=== PATIENT | male | born 1995 | race Caucasian/White ===

== ENCOUNTER 2021-06-16 12:29 | Outpatient (REF) | payer OTHER, SELFPAY | END 2021-06-16 12:30 | disposition home or self-care (01) | LOC: HO.LAB 12:29 | PROVIDERS: Visit Provider Internal Medicine | DX: Z20.822 Contact with and (suspected) exposure to COVID-19 (principal) | CPT/HCPCS: C9803; U0003; U0005 ==

== ENCOUNTER 2021-07-17 15:24 | Emergency (ER) | payer SELFPAY ==
[2021-07-17 15:28] VITALS: BP 121/65; PULSE 67; RESP 18; TEMP 36.1; O2SAT 100; BMI 22.4
--- NOTE | 2021-07-17 16:23 | ED_ITS ---
HPI - Dental/Oral General Chief complaint: General Medical Stated complaint: dental pain Time Seen by Provider: 07/17/21 16:19 Source: patient Mode of arrival: ambulatory Limitations: no limitations History of Present Illness MD Complaint: tooth pain Teeth map: 1. Onset (ago): day(s) (over a year worse today) Duration: worsening Severity: moderate Relieving factors: nothing Exacerbating factors: chewing Context: history of dental caries, trauma (mechanism) (old fracture ) and poor dental care Treatment prior to arrival: none Related Data Previous Rx's Medication Instructions Recorded clindamycin HCl 300 mg capsule 600 mg PO Q6H 10 Days #80 cap 07/17/21 ibuprofen 800 mg tablet 800 mg PO Q8H PRN #14 tab 07/17/21 oxycodone 5 mg tablet 5 mg PO Q6H PRN #14 tab 07/17/21 Allergies Allergy/AdvReac Type Severity Reaction Status Date / Time Penicillins Allergy Unknown Unknown Verified 07/17/21 16:30 Review of Systems Review of Systems: Constitutional : No Fever, No Chills, No changes in PO intake, No difficulty speaking, no recent dental procedure, no heat or cold intolerance while eating, no recent face trauma, ENT/Mouth : + Dental pain, No Sore throat, No Jaw pain, No throat swelling, No swallowing difficulty, no change in voice, No facial swelling, no drooling, no trismus, no bleeding, no lacerations, no tongue swelling, gum swelling, Eyes: No Eye Pain, No periorbital Swelling Cardiovascular : No Chest Pain, No SOB Respiratory : No Cough, No Sputum, No Wheezing, No Smoke Exposure, No Dyspnea Gastrointestinal : No Nausea, No Vomiting, No Diarrhea Genitourinary : No Dysuria Musculoskeletal : No Myalgias Skin : No rash, no facial swelling or redness, Neuro : No Weakness, No Numbness, No Headache Yes all other systems are reviewed and are negative [facility] Past Medical History Attestation statement: The following information was validated with the patient. Social History Social History Advance Directives: No Advance Directives Information Provided: Yes Physical Exam Vital Signs: Vital Signs: Last Vital Signs Temp 97 F 07/17/21 15:28 Pulse 67 07/17/21 15:28 Resp 18 07/17/21 15:28 BP 121/65 07/17/21 15:28 Pulse Ox 100 07/17/21 15:28 Body Mass Index 22.4 vital signs have been reviewed as normal and appeared to be correct. Blood pressure normal. Heart rate normal. Respiration rate normal. Temperature normal. Oxygen saturation normal. Appearance: Alert. Oriented X3. No acute distress. Head: Normal external exam. Normocephalic. Atraumatic. Eyes: PERRLA. EOMI. Conjunctiva and sclera normal. Eyelids normal. ENT: EAC normal. TM's Normal. Pharynx normal. Uvula midline. Moist mucous membranes. No trismus noted. No drooling noted. No muffled voice noted. Dentition: Patient with poor dentition throughout with multiple old fractured teeth with multiple dental caries. Gingival within normal limits. No fluctuance. Not consistent with peritonsillar abscess. Not consistent with dental abscess. No salivary duct obstruction noted. Neck: Normal inspection. Neck supple. FROM. No adenopathy. Thyroid Normal. No meningeal signs. No neck mass noted. Trachea midline. CVS: Normal heart rate and rhythm. Heart sound normal. No murmurs noted. Pulses normal throughout. Respiratory: No respiratory distress. Painless inspiration. Breath sounds nor mal. No wheezes/rales/rhonchi noted. Chest nontender. No accessory muscle usage noted or decreased air movement noted. Back: Full range of motion noted. Skin: Skin warm and dry. Normal skin color. Normal skin turgor. No rashes/lesions/lacerations noted. Extremities:Extremities exhibit normal range of motion. Extremities nontender. Neuro: Oriented X 3. No motor deficit. No sensory deficit. Reflexes normal. [facility] - Dental/Oral Medical Records Attestation: I reviewed the patient's medical records. Discharge Plan Discharge Clinical Impression: Dental caries, Tooth ache Patient Disposition: Home, Self-Care Instructions: Toothache (ED) Prescriptions: New clindamycin HCl 300 mg capsule 600 mg PO Q6H 10 Days Qty: 80 RF: 0 ibuprofen 800 mg tablet 800 mg PO Q8H PRN (Reason: pain) Qty: 14 RF: 0 oxycodone 5 mg tablet 5 mg PO Q6H PRN (Reason: pain) Qty: 14 RF: 0 Referrals: Physician,None [Primary Care Provider] - 2 days (your dentist ) Stand Alone Forms: Work/School Release Print Language: Romansh
[2021-07-17] MEDS: oxyCODONE HCl Immed Release 5 MG TABLET PO (16:49)
--- NOTE | 2021-07-17 16:52 | PC.NURSE ---
PT AWAKE, ALERT AND ORIENTED X 3. SKIN WARM AND DRY. RESP UNLABORED. DENIES N/V. AIRWAY PATENT. SPEAKING IN FULL CLEAR SENTENCES. NO ACUTE DISTRESS NOTED. EVALUATED BY PENELOPE HOWE. PLAN IS FOR DC HOME. PT AGREEABLE TO PLAN.
== END 2021-07-17 16:58 | disposition home or self-care (01) ==
LOC: HO.ED 16:30
PROVIDERS: Emergency Provider Emergency Medicine Emergency Medical Services
DX: K02.9 Dental caries, unspecified (principal)
CPT/HCPCS: 99283

== ENCOUNTER 2022-01-13 11:03 | Emergency (ER) | payer MEDICAID, SELFPAY ==
[2022-01-13 11:19] VITALS: BP 122/64; PULSE 95; RESP 18; TEMP 36.9; O2SAT 97; BMI 21.5
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
== END 2022-01-13 12:59 | disposition home or self-care (01) ==
PROVIDERS: Emergency Provider Emergency Medicine
DX: T54.91XA Toxic effect of unspecified corrosive substance, accidental (unintentional), initial encounter (principal); T22.412A Corrosion of unspecified degree of left forearm, initial encounter; T32.0 Corrosions involving less than 10% of body surface; Y93.89 Activity, other specified; Y92.59 Other trade areas as the place of occurrence of the external cause; Y99.0 Civilian activity done for income or pay
CPT/HCPCS: 99283

== ENCOUNTER 2022-01-23 12:53 | Outpatient (RCR) | payer OTHER, SELFPAY | END 2022-02-19 14:57 | disposition home or self-care (01) | LOC: HO.WCC 12:53 | PROVIDERS: Visit Provider Physician Assistant | DX: T22.71 Corrosion of third degree of forearm (principal); T32.0 Corrosions involving less than 10% of body surface; F17.210 Nicotine dependence, cigarettes, uncomplicated; Y93.G1 Activity, food preparation and clean up; Y92.9 Unspecified place or not applicable; Y99.0 Civilian activity done for income or pay | CPT/HCPCS: 16020; 99212 ==

== ENCOUNTER 2022-02-06 15:11 | Emergency (ER) | payer OTHER, SELFPAY ==
[2022-02-06 15:21] VITALS: BP 123/65; PULSE 72; RESP 18; TEMP 36.2; O2SAT 99
--- NOTE | 2022-02-06 16:13 | ED_ITS ---
HPI - Dental/Oral General Chief complaint: Dental/Oral Stated complaint: Mouth pain Time Seen by Provider: 02/06/22 16:13 Source: patient Mode of arrival: ambulatory Limitations: no limitations History of Present Illness MD Complaint: tooth pain Teeth map: 1. Onset (ago): month(s) (The past few months worse in the past 2-3 days) Duration: constant Severity: moderate Relieving factors: nothing Exacerbating factors: nothing Context: history of dental caries and poor dental care Treatment prior to arrival: none Related Data Previous Rx's Medication Instructions Recorded clindamycin HCl 300 mg capsule 600 mg PO Q6H 10 Days #80 cap 07/17/21 ibuprofen 800 mg tablet 800 mg PO Q8H PRN #14 tab 07/17/21 oxycodone 5 mg tablet 5 mg PO Q6H PRN #14 tab 07/17/21 clindamycin HCl 300 mg capsule 300 mg PO Q8H 10 Days #30 cap 02/06/22 hydrocodone 5 mg-acetaminophen 325 1 tab PO Q6H PRN #10 tab 02/06/22 mg tablet ibuprofen 800 mg tablet 800 mg PO Q8H PRN #10 tab 02/06/22 Allergies Allergy/AdvReac Type Severity Reaction Status Date / Time Penicillins Allergy Unknown Unknown Verified 07/17/21 16:30 Review of Systems Review of Systems: Constitutional : No Fever, No Chills, No changes in PO intake, No difficulty speaking, no recent dental procedure, no heat or cold intolerance while eating, no recent face trauma, ENT/Mouth : + Dental pain, No Sore throat, No Jaw pain, No throat swelling, No swallowing difficulty, no change in voice, No facial swelling, no drooling, no trismus, no bleeding, no lacerations, no tongue swelling, gum swelling, Eyes: No Eye Pain, No periorbital Swelling Cardiovascular : No Chest Pain, No SOB Respiratory : No Cough, No Sputum, No Wheezing, No Smoke Exposure, No Dyspnea Gastrointestinal : No Nausea, No Vomiting, No Diarrhea Genitourinary : No Dysuria Musculoskeletal : No Myalgias Skin : No rash, no facial swelling or redness, Neuro : No Weakness, No Numbness, No Headache Yes all other systems are reviewed and are negative PMFSH Past Medical History Attestation statement: The following information was validated with the patient. Medical History No known health problems Social History Social History Advance Directives: No Advance Directives Information Provided: No Physical Exam Vital Signs: Vital Signs: Last Vital Signs Temp 97.2 F 02/06/22 15:21 Pulse 72 02/06/22 15:21 Resp 18 02/06/22 15:21 BP 123/65 02/06/22 15:21 Pulse Ox 99 02/06/22 15:21 BMI result Body Mass Index 20.0 vital signs have been reviewed as normal and appeared to be correct. Blood pressure normal. Heart rate normal. Respiration rate normal. Temperature normal. Oxygen saturation normal. Appearance: Alert. Oriented X3. No acute distress. Head: Normal external exam. Normocephalic. Atraumatic. Eyes: PERRLA. EOMI. Conjunctiva and sclera normal. Eyelids normal. ENT: EAC normal. TM's Normal. Pharynx normal. Uvula midline. Moist mucous membranes. No trismus noted. No drooling noted. No muffled voice noted. Dentition: Patient with poor dentition throughout with multiple old fractured teeth with multiple dental caries and some canker sores noted otherwise the rest of the Gingival within normal limits. No fluctuance. Not consistent with peritonsillar abscess. Not consistent with dental abscess. No salivary duct obstruction noted. Neck: Normal inspection. Neck supple. FROM. No adenopathy. Thyroid Normal. No meningeal signs. No neck mass noted. Trachea midline. CVS: Normal heart rate and rhythm. Heart sound normal. No murmurs noted. Pulses normal throughout. Respiratory: No respiratory distress. Painless inspiration. Breath sounds normal. No wheezes/rales/rhonchi noted. Chest nontender. No accessory muscle usage noted or decreased air movement noted. Back: Full range of motion noted. Skin: Skin warm and dry. Normal skin color. Normal skin turgor. No r ashes/lesions/lacerations noted. Extremities:Extremities exhibit normal range of motion. Extremities nontender. Neuro: Oriented X 3. No motor deficit. No sensory deficit. Reflexes normal. Course Course Course Narrative: Patient with dental pain/dental caries and canker ulcers. No dental absce sses/pharyngeal abscess/tonsillar abscess. Patient tolerating secretions well. No trismus/drooling/stridor. Will DC home with antibiotics and symptomatic treatment instructions return if any new or worsening symptoms to follow up with primary care provider and dentist. Patient understands agrees with this plan. [facility] - Dental/Oral Medical Records Attestation: I reviewed the patient's medical records. Discharge Plan Discharge Clinical Impression: Toothache, Dental caries, Aphthous ulcer Patient Disposition: Home, Self-Care Instructions: Canker Sores (ED), Toothache (ED) Prescriptions: New clindamycin HCl 300 mg capsule 300 mg PO Q8H 10 Days Qty: 30 0RF hydrocodone-acetaminophen 5-325 mg tablet 1 tab PO Q6H PRN (Reason: pain) Qty: 10 0RF Rx Instructions: May partially fill upon patient request ibuprofen 800 mg tablet 800 mg PO Q8H PRN (Reason: pain) Qty: 10 0RF No Action clindamycin HCl 300 mg capsule 600 mg PO Q6H 10 Days Qty: 80 0RF ibuprofen 800 mg tablet 800 mg PO Q8H PRN (Reason: pain) Qty: 14 0RF oxycodone 5 mg tablet 5 mg PO Q6H PRN (Reason: pain) Qty: 14 0RF Referrals: Physician,None [Primary Care Provider] - 2 days (Your PCP/dentist) Print Language: Romansh
== END 2022-02-06 16:28 | disposition home or self-care (01) ==
PROVIDERS: Emergency Provider Emergency Medicine
DX: K02.9 Dental caries, unspecified (principal); K12.0 Recurrent oral aphthae
CPT/HCPCS: 99283

== ENCOUNTER 2022-02-16 10:05 | Emergency (ER) | payer OTHER, SELFPAY ==
[2022-02-16 11:13] VITALS: BP 148/77; PULSE 76; RESP 18; TEMP 36.4; O2SAT 99
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
[2022-02-16] MEDS: Ketorolac Tromethamine 30 MG/ML VIAL IM (12:24)
== END 2022-02-16 12:53 | disposition home or self-care (01) ==
PROVIDERS: Emergency Provider Emergency Medicine
DX: M79.10 Myalgia, unspecified site (principal); M79.602 Pain in left arm; Z79.899 Other long term (current) drug therapy
CPT/HCPCS: 96372; 99282; 99284; J1885

== ENCOUNTER 2022-02-16 22:36 | Emergency (ER) | payer OTHER, SELFPAY ==
[2022-02-16 22:38] VITALS: BP 133/83; PULSE 83; RESP 18; TEMP 36.6; O2SAT 96
[2022-02-16 22:47] LABS: MANUAL DIFF FLAG NO
[2022-02-16 23:02] LABS: Basophils Absolute Auto 0.1 X10*3/uL (0.0-0.2); Basophils Percent Auto 0.4 % (0-2); Eosinophils Absolute Auto 0.1 X10*3/uL (0.0-0.4); Eosinophils Percent Auto 0.8 % (0-4); Hemoglobin 16.1 g/dl (14.0-18.0); Imm Gran Abs Auto 0.04 X10*3/uL (0.00-0.03); Imm Gran Pct Auto 0.3 % (0.0-0.4); Lymphocytes Absolute Auto 2.4 X10*3/uL (1.2-4.9); Lymphocytes Percent Auto 16.1 % (20-40); Mean Corpuscular Volume 85.7 fL (80.0-98.0); Mean Platelet Volume 9.9 fL (9.4-12.4); Monocytes Absolute Auto 1.4 X10*3/uL (0.1-1.2); Monocytes Percent Auto 9.7 % (2-11); Neutrophils Absolute Auto 10.7 x10*3/uL (2.0-8.3); Neutrophils Percent Auto 72.7 % (45-73); Platelet Count 266 X10*3/uL (160-400); Red Blood Count 5.37 X10*6/uL (4.60-5.80); Red Cell Distribution Width 13.1 % (11.0-16.0); White Blood Count 14.7 X10*3/uL (4.8-10.8)
[2022-02-16 23:03] LABS: Anion Gap 13 (12-20); Blood Urea Nitrogen 15 mg/dL (9-16); Calcium 10.5 mg/dL (8.4-10.2); Carbon Dioxide 23 mmol/L (22-29); Chloride 107 mmol/L (96-108); Creatinine Clr Calc Pharmacy 56.7; Estimated Glomerular Filt Rate 47; Glucose Random 104 mg/dL (60-115); Lipase 11 U/L (8-78); Potassium 3.8 mmol/L (3.3-5.1); Sodium 139 mmol/L (135-145)
--- NOTE | 2022-02-17 02:48 | PC.NURSE ---
Pt reports his vomiting has subsided and some of the blood that he was vomiting earlier in the day is no longer in his vomit.
[2022-02-17 03:00] VITALS: BP 116/60; PULSE 61; RESP 18; TEMP 37.3; O2SAT 96
[2022-02-17] MEDS: Sucralfate Oral Suspension 1 GM/10 ML ORAL.SUSP PO (03:27)
[2022-02-17] MEDS: Ondansetron ODT 4 MG TAB.RAPDIS TRANSLINGU (03:27)
[2022-02-17] MEDS: Lidocaine HCl Viscous 2 % 15 ML SOLUTION 10 ML MUCOUS MEM (03:27)
[2022-02-17] MEDS: Magnesium Hydrox/Alum Hydrox 30 ML ORAL.SUSP PO (03:28)
--- NOTE | 2022-02-17 03:47 | ED.NAVMDI ---
HPI - Nausea/Vomiting/Diarrhea General Chief complaint: Abdominal Pain Stated complaint: vomiting blood Time Seen by Provider: 02/17/22 03:10 Source: patient, family and information and referral director Mode of arrival: ambulatory History of Present Illness HPI Narrative: 26-year-old male who was seen here earlier in the day for chronic pain to the left arm currently taking hydrocodone for that, now presents with complaints of nausea and vomiting of 3 episodes dark red blood in the past 40 minutes. He denies any contaminated food or diarrhea but states he is having abdominal pain as well. He denies any alcohol/drug or marijuana use. Related Data Previous Rx's Medication Instructions Recorded clindamycin HCl 300 mg capsule 600 mg PO Q6H 10 Days #80 cap 07/17/21 ibuprofen 800 mg tablet 800 mg PO Q8H PRN #14 tab 07/17/21 oxycodone 5 mg tablet 5 mg PO Q6H PRN #14 tab 07/17/21 clindamycin HCl 300 mg capsule 300 mg PO Q8H 10 Days #30 cap 02/06/22 hydrocodone 5 mg-acetaminophen 325 1 tab PO Q6H PRN #10 tab 02/06/22 mg tablet ibuprofen 800 mg tablet 800 mg PO Q8H PRN #10 tab 02/06/22 ketorolac 10 mg tablet 10 mg PO TID PRN #10 tab 02/16/22 ondansetron 4 mg disintegrating 4 mg PO Q6H PRN #10 tab 02/17/22 tablet Allergies Allergy/AdvReac Type Severity Reaction Status Date / Time Penicillins Allergy Unknown Unknown Verified 02/16/22 22:38 Review of Systems Review of Systems: Pertinent positives and negatives as stated in HPI 10 point review of systems is otherwise negative. [facility] Past Medical History Source: nursing notes reviewed Medical History No known health problems Social History Social History Advance Directives: No Advance Directives Information Provided: No Physical Exam Vital Signs: Vital Signs: Last Vital Signs Temp 99.2 F 02/17/22 03:00 Pulse 61 02/17/22 03:00 Resp 18 02/17/22 03:00 BP 116/60 02/17/22 03:00 Pulse Ox 96 02/17/22 03:00 BMI result Body Mass Index 20.0 VITAL SIGNS: Reviewed. GENERAL: Well developed, well nourished, in no acute distress. HEAD: Normocephalic/atraumatic EYES: PERRLA, EOMI EARS: Ext canals without abnormality OROPHARYNX: no oral lesions noted, posterior pharynx clear, no stigmata of blood in the oral cavity. LUNGS: Normal breath sounds. No adventitious sounds or accessory muscle use. SpO2<96> CARDIOVASCULAR: Regular rate and rhythm without noted murmurs ABDOMEN: Soft, mild epigastric pain on palpation, non-distended with bowel sounds. SKIN: Inspection of the skin reveals no rashes NEUROLOGIC: Alert and oriented x 4. Strength and sensation to light touch were grossly intact x 4. Course Course Course Narrative: 26-year-old male with history and clinical presentation suggestive of possible reaction to having been on clindamycin for dental caries which was completed on Wednesday. Although there is no obvious hematemesis in the vomit bag, there have been no further episodes of vomiting since arrival in the emergency room, patient is not tachycardic nor tachypneic, and on review of all investigations there is no evidence of shift in H/H but the noted leukocytosis is likely reactive in nature. Patient was provided with Zofran as well as GI cocktail Carafate and is currently tolerating that without difficulty. All investigations reviewed and on re-evaluation patient is feeling much better. MDM - Nausea/Vomiting/Diarrhea Lab Data Result diagrams: 02/16/22 22:43 02/16/22 22:43 Labs: Lab Results 02/16/22 02/16/22 Range/Units 22:43 22:43 WBC 14.7 H (4.8-10.8) X10*3/uL RBC 5.37 (4.60-5.80) X10*6/uL Hgb 16.1 (14.0-18.0) g/dl Hct 46.0 (42.0-52.0) % MCV 85.7 (80.0-98.0) fL MCH 30.0 (27.0-33.0) pg MCHC 35.0 (31.0-36.0) g/dl RDW 13.1 (11.0-16.0) % Plt Count 266 (160-400) X10*3/uL MPV 9.9 (9.4-12.4) fL Immature Gran % (Auto) 0.3 (0.0-0.4) % Neut % (Auto) 72.7 (45-73) % Lymph % (Auto) 16.1 L (20-40) % [place] % (Auto) 9.7 (2-11) % Eos % (Auto) 0.8 (0-4) % Baso % (Auto) 0.4 (0-2) % Lymph # (Auto) 2.4 (1.2-4.9) X10*3/uL [place] # (Auto) 1.4 H (0.1-1.2) X10*3/uL Eos # (Auto) 0.1 (0.0-0.4) X10*3/uL Baso # (Auto) 0.1 (0.0-0.2) X10*3/uL Abs Immat Gran (auto) 0.04 H (0.00-0.03) X10*3/uL Absolute Neuts (auto) 10.7 H (2.0-8.3) x10*3/uL Absolute Nucleated RBC 0.000 (0.0-0.012) X10*3/uL Nucleated RBC % (auto) 0.0 (0.0-0.2) /100WBC Sodium 139 (135-145) mmol/L Potassium 3.8 (3.3-5.1) mmol/L Chloride 107 (96-108) mmol/L Carbon Dioxide 23 (22-29) mmol/L Anion Gap 13 (12-20) BUN 15 (9-16) mg/dL Creatinine 1.74 H (0.5-1.4) mg/dL Estim Creat Clear Calc 56.7 Estimated GFR 47 Random Glucose 104 (60-115) mg/dL Calcium 10.5 H (8.4-10.2) mg/dL Lipase 11 (8-78) U/L Discharge Plan Discharge Clinical Impression: Gastroenteritis, Gastritis Patient Disposition: Home, Self-Care Instructions: Gastritis (ED), Diet for Stomach Ulcers and Gastritis (ED), Gastroenteritis (ED) Additional Instructions: 1. Aumentar la hidrataci?n fluida, especialmente con agua. 2. Se le villarreal proporcionado ora receta para controlar las n?useas. 3. Establezca un proveedor de atenci?n primaria lo antes posible. Regrese a la orlando de emergencias si los s?ntomas empeoran. Prescriptions: New ondansetron 4 mg tablet,disintegrating 4 mg PO Q6H PRN (Reason: nausea and vomiting) Qty: 10 0RF No Action clindamycin HCl 300 mg capsule 600 mg PO Q6H 10 Days Qty: 80 0RF ibuprofen 800 mg tablet 800 mg PO Q8H PRN (Reason: pain) Qty: 14 0RF oxycodone 5 mg tablet 5 mg PO Q6H PRN (Reason: pain) Qty: 14 0RF clindamycin HCl 300 mg capsule 300 mg PO Q8H 10 Days Qty: 30 0RF hydrocodone-acetaminophen 5-325 mg tablet 1 tab PO Q6H PRN (Reason: pain) Qty: 10 0RF Rx Instructions: May partially fill upon patient request ibuprofen 800 mg tablet 800 mg PO Q8H PRN (Reason: pain) Qty: 10 0RF ketorolac 10 mg tablet 10 mg PO TID PRN (Reason: pain) Qty: 10 0RF Referrals: Physician,None [Primary Care Provider] - Print Language: Canadian
[2022-02-17 06:06] VITALS: BP 115/64; PULSE 72; RESP 18; TEMP 36.9; O2SAT 99
== END 2022-02-17 06:08 | disposition home or self-care (01) ==
PROVIDERS: Emergency Provider Student in an Organized Health Care Education/Training Program
DX: K52.9 Noninfective gastroenteritis and colitis, unspecified (principal); R11.2 Nausea with vomiting, unspecified; Z79.899 Other long term (current) drug therapy
CPT/HCPCS: 36415; 80048; 83690; 85025; 99281; 99283

== ENCOUNTER 2022-03-10 11:00 | Outpatient (RCR) | payer OTHER, SELFPAY | END 2022-03-24 11:54 | disposition home or self-care (01) | LOC: HO.OT 11:00 | PROVIDERS: Visit Provider Physician Assistant | DX: T22.212D Burn of second degree of left forearm, subsequent encounter (principal) | CPT/HCPCS: 97110; 97166 ==

== ENCOUNTER 2022-07-07 17:59 | Emergency (ER) | payer OTHER, SELFPAY ==
[2022-07-07 19:09] VITALS: BP 122/77; PULSE 77; RESP 16; TEMP 36.8; O2SAT 99; BMI 20.2
[2022-07-07 19:42] LABS: COVID-19 Test Negative (Negative); IDNOW Serial# 55D5AD1C
[2022-07-07 19:48] LABS: Strep A Nucleic Acid Negative (Negative)
--- NOTE | 2022-07-07 20:59 | ED_ITS ---
HPI - URI/Sore Throat General Chief Complaint: Fever Stated Complaint: fever, sore throat Time Seen by Provider: 07/07/22 19:35 Source: patient Mode of arrival: ambulatory Limitations: language barrier (Cook Islander-speaking medical sales associate utilized) History of Present Illness HPI Narrative: Patient presents to the emergency department for evaluation of upper respiratory symptoms. States for the past 2 days he has been feeling feverish, has not actually checked the temperature, as generalized body aches, sore throat. Denies any known sick contacts. Has taken acetaminophen which does improve tactile fever. Denies neck pain, neck stiffness, headache, dizziness, lightheadedness, chest pain, palpitations, shortness of breath, difficulty breathing, nausea, vomiting, abdominal pain, numbness or tingling of the extremities, weakness. Related Data Previous Rx's Medication Instructions Recorded clindamycin HCl 300 mg capsule 600 mg PO Q6H dental infection 10 07/17/21 days #80 caps ibuprofen 800 mg tablet 800 mg PO Q8H PRN pain #14 tabs 07/17/21 oxycodone 5 mg tablet 5 mg PO Q6H PRN pain #14 tabs 07/17/21 clindamycin HCl 300 mg capsule 300 mg PO Q8H 10 days #30 caps 02/06/22 hydrocodone 5 mg-acetaminophen 325 1 tab PO Q6H PRN pain #10 tabs 02/06/22 mg tablet ibuprofen 800 mg tablet 800 mg PO Q8H PRN pain #10 tabs 02/06/22 ketorolac 10 mg tablet 10 mg PO TID PRN pain #10 tabs 02/16/22 ondansetron 4 mg disintegrating 4 mg PO Q6H PRN nausea and 02/17/22 tablet vomiting #10 tabs Allergies Allergy/AdvReac Type Severity Reaction Status Date / Time Penicillins Allergy Unknown Unknown Verified 07/07/22 19:13 Review of Systems Review of Systems: Constitutional: Positive tactile fever. No recent unintentional weight loss. No night sweats. No chills. No weakness. Positive fatigue. ENT/ Mouth: No Ear Pain, positive Nasal Congestion, positive sore throat, No Rhinorrhea, No Swallowing Difficulty Skin: No rash or itching. Cardiovascular: No chest pain. No palpitations. Respiratory: No shortness of breath. No cough. No sputum production. Gastrointestinal: No nausea. No vomiting. No diarrhea. No abdominal pain. Genitourinary: No burning micturition. No urinary frequency. Neurologic: No headache. No dizziness. No syncope. No numbness or tingling in the extremities. Musculoskeletal: No muscle pain. No back pain. No joint pain or stiffness. Yes all other systems are reviewed and are negative [facility] Past Medical History Attestation statement: The following information was validated with the patient. Source: old records reviewed Medical History No known health problems Social History Social History Advance Directives: No Advance Directives Information Provided: No Physical Exam Vital Signs: Vital Signs: Last Vital Signs Temp 98.2 F 07/07/22 19:09 Pulse 77 07/07/22 19:09 Resp 16 07/07/22 19:09 BP 122/77 07/07/22 19:09 Pulse Ox 99 07/07/22 19:09 O2 Del Method 07/07/22 19:09 BMI result Body Mass Index 20.2 Vital signs have been reviewed as normal and appeared to be correct. Blood pressure normal.? Heart rate normal.? Respiration rate normal. Temperature normal.? Oxygen saturation normal. Appearance: Alert.?Oriented to person, place and time. No acute distress.?Normal affect. Eyes: Pupils equal, round and reactive to light.? ENT: TM normal bilaterally. Pharynx mildly erythematous, no exudate, no hypertrophy?? Neck: Normal inspection.? Neck supple.??No cervical adenopathy CVS: Heart sounds normal. Normal heart rate and rhythm.? Pulses normal.?? Respiratory: No respiratory distress.? Lung sounds clear to auscultation bilaterally?? Abdomen: Soft and non-tender. Normoactive bowel sounds. Skin: Skin warm and dry.? Normal skin color.? ? Extremities: No lower extremity edema.? Neuro: Moves all extremities spontaneously. Sensation intact bilaterally. No motor deficits. Ambulates with normal steady gait. Course Course Course Narrative: Patient is a 27-year-old male with no significant past medical history, presenting for evaluation of upper respiratory symptoms. COVID-19 testing negative. Strep testing is negative At this time history and physical exam not consistent with peritonsillar abscess, retropharyngeal abscess, pneumonia. W ell-appearing, nontoxic, afebrile, no tachycardia or tachypnea/hypoxia. Speaking clear full sentences, ambulatory with steady gait. Discussed conservative treatment including rest, hydration, Tylenol/ibuprofen as needed for fever and body aches, saline nasal spray, humidifier, hncw-snw-ynoaxon cold medication. Advised to follow-up with primary care provider as needed, discussed reasons to return back to the emergency department. All questions were answered. Patient discharged home in stable condition. Provided with a return to work note. MDM - URI/Sore Throat Medical Records Attestation: I reviewed the patient's medical records. Lab Data Attestation: I reviewed the patient's lab results. Labs: Lab Results 07/07/22 07/07/22 Range/Units 19:14 19:14 COVID-19 (FABIAN) Negative (Negative) COVID-19 Clin Com See Note S. pyogenes GrpA JACI Negative (Negative) Discharge Plan Discharge Clinical Impression: Upper respiratory infection Qualifiers: URI type: unspecified URI Qualified Code(s): J06.9 - Acute upper respiratory infection, unspecified Patient Disposition: Home, Self-Care Instructions: Upper Respiratory Infection (ED) Additional Instructions: Be sure to rest, stay well hydrated drinking plenty of fluids, eat small frequent meals. You can take ibuprofen 200 mg, 3 tablets (600mg) every 6-8 hours as needed for pain/ fever, in addition to Tylenol 500 mg, 2 tablets (1,000mg) every 4-6 hours as needed for pain/ fever, but not to exceed 3 doses daily (3,000mg).? Bzmh-mih-rhvwzdl cold medications may be helpful as well for symptoms. Saline nasal spray, humidifier may be helpful for nasal congestion. You may return to the emergency department with any new or worsening symptoms or concerns. Follow-up with your primary care provider as needed. Prescriptions: No Action clindamycin HCl 300 mg capsule 600 mg PO Q6H 10 Days Qty: 80 0RF ibuprofen 800 mg tablet 800 mg PO Q8H PRN (Reason: pain) Qty: 14 0RF oxycodone 5 mg tablet 5 mg PO Q6H PRN (Reason: pain) Qty: 14 0RF clindamycin HCl 300 mg capsule 300 mg PO Q8H 10 Days Qty: 30 0RF hydrocodone-acetaminophen 5-325 mg tablet 1 tab PO Q6H PRN (Reason: pain) Qty: 10 0RF Rx Instructions: May partially fill upon patient request ibuprofen 800 mg tablet 800 mg PO Q8H PRN (Reason: pain) Qty: 10 0RF ketorolac 10 mg tablet 10 mg PO TID PRN (Reason: pain) Qty: 10 0RF ondansetron 4 mg tablet,disintegrating 4 mg PO Q6H PRN (Reason: nausea and vomiting) Qty: 10 0RF Stand Alone Forms: Work/School Release Print Language: Cook Islander
== END 2022-07-07 21:24 | disposition home or self-care (01) ==
PROVIDERS: Emergency Provider Emergency Medicine Emergency Medical Services
DX: J06.9 Acute upper respiratory infection, unspecified (principal); R50.9 Fever, unspecified; Z20.822 Contact with and (suspected) exposure to COVID-19; Z79.899 Other long term (current) drug therapy
CPT/HCPCS: 36415; 87635; 87651; 99282; 99283

== ENCOUNTER 2023-06-03 10:26 | Emergency (ER) | payer OTHER, SELFPAY ==
[2023-06-03 10:32] VITALS: BP 115/75; PULSE 84; RESP 12; TEMP 37; O2SAT 99; BMI 19.7
[2023-06-03 10:36] VITALS: BP 111/61; RESP 18; O2SAT 97; BMI 30.1
--- NOTE | 2023-06-03 10:41 | PC.NURSE ---
Patient report left sided side and back pain. Reports pain started while he was moving furniture yesterday. Rates pain at 7/10.
--- NOTE | 2023-06-03 11:34 | PC.NURSE ---
Patient with right sided lower lip swelling. Patient reports not itchy or painful. Denies any new medications, or foods, denies having any allergies. Denies trauma to area. Reports same thing happened about 10 years ago but does not know what caused it
--- NOTE | 2023-06-03 11:35 | ED_ITS ---
HPI - General Adult General Chief complaint: General Medical Stated complaint: pain in lips Time Seen by Provider: 06/03/23 11:27 Source: patient Limitations: no limitations History of Present Illness HPI narrative: Patient presents the ER with a right lower lip swelling with some slight pain on palpation. Patient states similar episode happened about 10 years prior which resolved on its own. Patient denies any exposure to new medications to topical ointments or other allergens. Symptoms are mild in nature no history of cold sores at this time no shortness of breath no fever chills. Patient is otherwise well-appearing without complaints. Related Data Previous Rx's Medication Instructions Recorded clindamycin HCl 300 mg capsule 600 mg PO Q6H dental infection 10 07/17/21 days #80 caps ibuprofen 800 mg tablet 800 mg PO Q8H PRN pain #14 tabs 07/17/21 oxycodone 5 mg tablet 5 mg PO Q6H PRN pain #14 tabs 07/17/21 clindamycin HCl 300 mg capsule 300 mg PO Q8H 10 days #30 caps 02/06/22 hydrocodone 5 mg-acetaminophen 325 1 tab PO Q6H PRN pain #10 tabs 02/06/22 mg tablet ibuprofen 800 mg tablet 800 mg PO Q8H PRN pain #10 tabs 02/06/22 ketorolac 10 mg tablet 10 mg PO TID PRN pain #10 tabs 02/16/22 ondansetron 4 mg disintegrating 4 mg PO Q6H PRN nausea and 02/17/22 tablet vomiting #10 tabs diphenhydramine HCl 25 mg capsule 25 mg PO TID PRN itching #14 caps 06/03/23 (Allergy (diphenhydramine)) sulfamethoxazole 800 1 tab PO BID 7 days #14 tabs 06/03/23 mg-trimethoprim 160 mg tablet (Bactrim DS) Allergies Allergy/AdvReac Type Severity Reaction Status Date / Time Penicillins Allergy Unknown Unknown Verified 07/07/22 19:13 Review of Systems Review of Systems: General: No fever, no chills Ophthalmology: No vision changes, no discharge ENT: Right lower lip swelling pain Cardiovascular: No chest pain, no peripheral edema, no shortness of breath Respiratory: No dyspnea, no sputum production, no cough Muscle skeletal: No malaise, no back pain, no neck pain, no extremity pain GI: vomiting, no diarrhea Skin: Lower lip swelling Immunology: No immunocompromised Hematology: No bleeding, no bruising PMFSH Past Medical History Attestation statement: The following information was validated with the patient. Medical History No known health problems Social History Social History Advance Directives: No Physical Exam ED Vital Signs: Vital Signs - 24 hr 06/03/23 10:32 06/03/23 10:36 Temperature 98.6 F Pulse Rate 84 Respiratory Rate 12 18 Blood Pressure 115/75 111/61 Pulse Oximetry 99 97 Oxygen Delivery Method Room Air Room Air BMI result Body Mass Index 30.1 General appearance: Awake, alert, cooperative, in no acute distress Skin: Warm, dry, no rash, slight erythema noted a right lower lip Eyes: PERRL, EOMI, no icterus ENT: Uvula midline, lower lip right-sided site swelling noted slight tenderness no aphthous ulcers noted. No open wounds. Neck: Soft supple full range of motion Extremities: No deformity, nontender, no peripheral edema noted Neuro: Alert oriented x3, no focal deficit Psych: Normal affect Course Course Course Narrative: Differential diagnosis: Allergic reaction Localized reaction to an allergy into right lower lip Right lower lip cellulitis Cold sore Otherwise well-appearing 27-year-old male is nontoxic in appearance with this minimally swollen right lower lid. Slight tenderness to touch no open wounds or sores noted. Likely localized reaction versus early onset cellulitis will treat with Benadryl Bactrim. Discharge Plan Discharge Clinical Impression: Lip edema, Allergic reaction Patient Disposition: Home, Self-Care Instructions: General Allergic Reaction (ED) Additional Instructions: If symptoms are consistent with a localized reaction to an allergen of the right lower lip versus an early onset of an infection we will be treating both at this time please take medications as directed. On return if symptoms worsen increased swelling pain or fever. Prescriptions: New diphenhydramine HCl [Allergy (diphenhydramine)] 25 mg capsule 25 mg PO TID PRN (Reason: itching) Qty: 14 0RF sulfamethoxazole-trimethoprim [Bactrim DS] 800-160 mg tablet 1 tab PO BID 7 Days Qty: 14 0RF No Action clindamycin HCl 300 mg capsule 600 mg PO Q6H 10 Days Qty: 80 0RF ibuprofen 800 mg tablet 800 mg PO Q8H PRN (Reason: pain) Qty: 14 0RF oxycodone 5 mg tablet 5 mg PO Q6H PRN (Reason: pain) Qty: 14 0RF clindamycin HCl 300 mg capsule 300 mg PO Q8H 10 Days Qty: 30 0RF hydrocodone-acetaminophen 5-325 mg tablet 1 tab PO Q6H PRN (Reason: pain) Qty: 10 0RF Rx Instructions: May partially fill upon patient request ibuprofen 800 mg tablet 800 mg PO Q8H PRN (Reason: pain) Qty: 10 0RF ketorolac 10 mg tablet 10 mg PO TID PRN (Reason: pain) Qty: 10 0RF ondansetron 4 mg tablet,disintegrating 4 mg PO Q6H PRN (Reason: nausea and vomiting) Qty: 10 0RF Stand Alone Forms: Work/School Release Print Language: British
== END 2023-06-03 11:51 | disposition home or self-care (01) ==
PROVIDERS: Emergency Provider Emergency Medicine
DX: K13.0 Diseases of lips (principal); T78.40XA Allergy, unspecified, initial encounter; X58.XXXA Exposure to other specified factors, initial encounter
CPT/HCPCS: 99282; 99283

== ENCOUNTER 2023-06-13 18:19 | Emergency (ER) | payer OTHER, SELFPAY ==
[2023-06-13 18:39] VITALS: BP 139/88; PULSE 75; RESP 18; TEMP 36.9; O2SAT 100; BMI 18.6
[2023-06-13 18:59] VITALS: BP 118/60; PULSE 71; RESP 16; TEMP 36.7; O2SAT 98
--- NOTE | 2023-06-13 19:04 | ED_ITS ---
HPI - Dental/Oral General Chief complaint: Dental/Oral Stated complaint: tooth pain Time Seen by Provider: 06/13/23 19:03 Source: patient Mode of arrival: ambulatory Limitations: no limitations History of Present Illness HPI Narrative: 27 yo male presenting for evaluation of dental pain. He recently had dental work done on his right upper canine tooth. He is due to go back to the dentist on Wednesday for a crown. He has a type of covering or paste over the 2s. He noticed some swelling up into his right cheek and is concerned about an infection. He would like antibiotics. He was unable to get a hold of his dentist today. He denies any difficulty opening or closing his mouth. He denies any drainage from the tooth. No dental trauma. MD Complaint: tooth pain Location: Tooth # (6) Duration: worsening Severity: mild Relieving factors: NSAIDs Associated symptoms: other ( Maxillary swelling) Treatment prior to arrival: none Related Data Previous Rx's Medication Instructions Recorded clindamycin HCl 300 mg capsule 600 mg (2 x 300 mg) PO Q6H dental 07/17/21 infection 10 days #80 caps ibuprofen 800 mg tablet 800 mg PO Q8H PRN pain #14 tabs 07/17/21 oxycodone 5 mg tablet 5 mg PO Q6H PRN pain #14 tabs 07/17/21 clindamycin HCl 300 mg capsule 300 mg PO Q8H 10 days #30 caps 02/06/22 hydrocodone 5 mg-acetaminophen 325 1 tab PO Q6H PRN pain #10 tabs 02/06/22 mg tablet ibuprofen 800 mg tablet 800 mg PO Q8H PRN pain #10 tabs 02/06/22 ketorolac 10 mg tablet 10 mg PO TID PRN pain #10 tabs 02/16/22 ondansetron 4 mg disintegrating 4 mg PO Q6H PRN nausea and 02/17/22 tablet vomiting #10 tabs diphenhydramine HCl 25 mg capsule 25 mg PO TID PRN itching #14 caps 06/03/23 (Allergy (diphenhydramine)) sulfamethoxazole 800 1 tab PO BID 7 days #14 tabs 06/03/23 mg-trimethoprim 160 mg tablet (Bactrim DS) clindamycin HCl 300 mg capsule 300 mg PO Q6H 1 week #28 caps 06/13/23 Allergies Allergy/AdvReac Type Severity Reaction Status Date / Time Penicillins Allergy Unknown Unknown Verified 07/07/22 19:13 Review of Systems Review of Systems: Yes all other systems are reviewed and are negative PMFSH Past Medical History Medical History No known health problems Social History Social History Advance Directives: No Advance Directives Information Provided: No Physical Exam Vital Signs: Vital Signs: Last Vital Signs Temp 98.0 F 06/13/23 18:59 Pulse 71 06/13/23 18:59 Resp 16 06/13/23 18:59 BP 118/60 06/13/23 18:59 Pulse Ox 98 06/13/23 18:59 O2 Del Method Room Air 06/13/23 18:59 BMI result Body Mass Index 18.6 Appearance: Alert. Oriented X3. No acute distress. HEENT: normal inspection. no facial asymmetry. tooth #6 with white paste over the tooth covering it completely. mild associated gingival erythema and tenderness, no fluctutance. no trismus. normal oral mucosa and tongue CVS: Normal heart rate and rhythm. Pulses normal. Respiratory: No respiratory distress. Skin: Skin warm and dry. Normal skin color. Normal skin turgor. No rashes. Extremities: normal inspection x4. Neuro: Oriented X 3. No motor deficit. No sensory deficit. Medical Decision Making Medical Decision Making MDM Narrative: 27-year-old Sudanese-speaking male presents to the ER for evaluation of right upper facial swelling after he had recent dental work done. There is no obvious swelling on examination, it is more subjective in nature. He states he has had dental infections in the past and this feels similar. He has follow-up with his dentist later this week. He has been unable to get hold of them. There is no sign of a dental abscess on examination today. Given his recent instrumentation will cover empirically with antibiotics and have him follow-up with his dentist this week. Comfortable discharge home. Differential Diagnosis Differential Diagnoses: The differential diagnosis associated with the presentation includes toothache, gingivitis, dental infection, sinusitis External Record Review External record reviewed: Outpatient record Prescription Management I considered prescription management with: Pain Medication and Antibiotic Critical Care Time Critical Care Time Critical Care Time: No Discharge Plan Discharge Clinical Impression: Toothache Patient Disposition: Home, Self-Care Instructions: Toothache (ED) Additional Instructions: Take the prescribed antibiotics as directed, complete the entire course and do not miss any doses Prescriptions: New clindamycin HCl 300 mg capsule 300 mg PO Q6H 7 Days Qty: 28 0RF No Action clindamycin HCl 300 mg capsule 600 mg PO Q6H 10 Days Qty: 80 0RF ibuprofen 800 mg tablet 800 mg PO Q8H PRN (Reason: pain) Qty: 14 0RF oxycodone 5 mg tablet 5 mg PO Q6H PRN (Reason: pain) Qty: 14 0RF clindamycin HCl 300 mg capsule 300 mg PO Q8H 10 Days Qty: 30 0RF hydrocodone-acetaminophen 5-325 mg tablet 1 tab PO Q6H PRN (Reason: pain) Qty: 10 0RF Rx Instructions: May partially fill upon patient request ibuprofen 800 mg tablet 800 mg PO Q8H PRN (Reason: pain) Qty: 10 0RF ketorolac 10 mg tablet 10 mg PO TID PRN (Reason: pain) Qty: 10 0RF ondansetron 4 mg tablet,disintegrating 4 mg PO Q6H PRN (Reason: nausea and vomiting) Qty: 10 0RF diphenhydramine HCl [Allergy (diphenhydramine)] 25 mg capsule 25 mg PO TID PRN (Reason: itching) Qty: 14 0RF sulfamethoxazole-trimethoprim [Bactrim DS] 800-160 mg tablet 1 tab PO BID 7 Days Qty: 14 0RF Interventions: ED Discharge Assessment Last Done: 06/13/23 19:37 Discharge Date/Time: 06/13/23 19:38 Print Language: Sudanese
== END 2023-06-13 19:38 | disposition home or self-care (01) ==
PROVIDERS: Emergency Provider Emergency Medicine Emergency Medical Services
DX: K08.89 Other specified disorders of teeth and supporting structures (principal); Z79.899 Other long term (current) drug therapy
CPT/HCPCS: 99283

== ENCOUNTER 2023-09-21 11:03 | Emergency (ER) | payer OTHER, SELFPAY | END 2023-09-21 13:41 | disposition left against medical advice (07) | LOC: HO.ED 13:08 | PROVIDERS: Emergency Provider Emergency Medicine | DX: K08.9 Disorder of teeth and supporting structures, unspecified (principal); Z53.21 Procedure and treatment not carried out due to patient leaving prior to being seen by health care provider ==

== ENCOUNTER 2023-09-21 13:55 | Emergency (ER) | payer OTHER, SELFPAY ==
[2023-09-21 14:36] VITALS: BP 128/82; PULSE 104; RESP 15; TEMP 37.1; O2SAT 99; BMI 20.7
--- NOTE | 2023-09-21 14:40 | ED.GENADULT ---
HPI - General Adult General Chief complaint: Dental/Oral Stated complaint: dental pain Time Seen by Provider: 09/21/23 14:40 Source: patient, RN notes reviewed and old records reviewed Mode of arrival: ambulatory Limitations: no limitations History of Present Illness HPI narrative: 28-year-old male presents for evaluation of ?I have a dental infection. ? Patient has a history of a dental infection to a left upper molar. He was given clindamycin in June which was the last time he had the pain He reports that he has followed up with a dentist but was told and to see an oral surgeon He lost the appointment with the oral surgeon Reports worsening pain over the last 3 days to the left side of the face and upper molars. Related Data Previous Rx's Medication Instructions Recorded clindamycin HCl 300 mg capsule 600 mg (2 x 300 mg) PO Q6H dental 07/17/21 infection 10 days #80 caps ibuprofen 800 mg tablet 800 mg PO Q8H PRN pain #14 tabs 07/17/21 oxycodone 5 mg tablet 5 mg PO Q6H PRN pain #14 tabs 07/17/21 clindamycin HCl 300 mg capsule 300 mg PO Q8H 10 days #30 caps 02/06/22 hydrocodone 5 mg-acetaminophen 325 1 tab PO Q6H PRN pain #10 tabs 02/06/22 mg tablet ibuprofen 800 mg tablet 800 mg PO Q8H PRN pain #10 tabs 02/06/22 ketorolac 10 mg tablet 10 mg PO TID PRN pain #10 tabs 02/16/22 ondansetron 4 mg disintegrating 4 mg PO Q6H PRN nausea and 02/17/22 tablet vomiting #10 tabs diphenhydramine HCl 25 mg capsule 25 mg PO TID PRN itching #14 caps 06/03/23 (Allergy (diphenhydramine)) sulfamethoxazole 800 1 tab PO BID 7 days #14 tabs 06/03/23 mg-trimethoprim 160 mg tablet (Bactrim DS) clindamycin HCl 300 mg capsule 300 mg PO Q6H 1 week #28 caps 06/13/23 clindamycin HCl 300 mg capsule 300 mg PO Q6H #28 caps 09/21/23 ibuprofen 600 mg tablet 600 mg PO Q6H PRN pain #20 tabs 09/21/23 Allergies Allergy/AdvReac Type Severity Reaction Status Date / Time Penicillins Allergy Unknown Unknown Verified 07/07/22 19:13 Review of Systems Constitutional: Constitutional: Denies chills, Denies fever(s) and Denies headache(s) ENT: Denies headache(s) and Reports mouth pain Cardiovascular: Cardiovascular: Denies dyspnea Respiratory: Respiratory: Denies cough and Denies dyspnea Neurologic: Denies headache(s) PMFSH Past Medical History Medical History No known health problems Physical Exam ED Const General: healthy appearing, comfortable, no acute distress, alert and awake Nutritional Appearance: well nourished Orientation/consciousness: patient oriented x3 HENMT Other: Multiple dental caries. Patient has tooth decay to several teeth in the left upper molar region. Minimal gingival edema, no significant erythema or fluctuance Head: Yes normocephalic and Yes atraumatic Eyes Eyelids: Yes eyelids normal Conjunctivae: conjunctivae normal Sclerae: sclerae normal Corneas: corneas normal Pupils: Equal, round and reactive pupils present EOM: EOMs intact bilaterally Neck Neck: Yes full ROM Resp Effort & Inspection: normal respiratory effort, able to speak in complete sentences and not labored Skin General skin exam: elasticity normal Neuro General: patient oriented x3 Cranial nerves: Yes Equal, round and reactive pupils present and Yes Bilaterally intact EOM present Cognition (Neuro): normal cognition Extrem Other: Moving all extremities well without any obvious deformities Medical Decision Making Medical Decision Making MDM Narrative: Patient has evidence of a minor dental infection without evidence of abscess. He has a penicillin allergy, we will treat with clindamycin and ibuprofen. He was given a list of dental clinics Differential Diagnosis Differential Diagnoses: The differential diagnosis associated with the presentation includes Dental caries Tooth fracture Toothache Dental abscess Gingivitis Discharge Plan Discharge Clinical Impression: Atypical face pain Patient Disposition: Home, Self-Care Instructions: Atypical Facial Pain (ED) Additional Instructions: Take clindamycin 4 times daily for 1 week Take the entire course of the antibiotics You may use ibuprofen or Tylenol for pain You may use Orajel that is [id number] to help with the pain as well Follow-up with a dentist/oral surgeon Prescriptions: New clindamycin HCl 300 mg capsule 300 mg PO Q6H Qty: 28 0RF ibuprofen 600 mg tablet 600 mg PO Q6H PRN (Reason: pain) Qty: 20 0RF No Action clindamycin HCl 300 mg capsule 600 mg PO Q6H 10 Days Qty: 80 0RF ibuprofen 800 mg tablet 800 mg PO Q8H PRN (Reason: pain) Qty: 14 0RF oxycodone 5 mg tablet 5 mg PO Q6H PRN (Reason: pain) Qty: 14 0RF clindamycin HCl 300 mg capsule 300 mg PO Q8H 10 Days Qty: 30 0RF hydrocodone-acetaminophen 5-325 mg tablet 1 tab PO Q6H PRN (Reason: pain) Qty: 10 0RF Rx Instructions: May partially fill upon patient request ibuprofen 800 mg tablet 800 mg PO Q8H PRN (Reason: pain) Qty: 10 0RF ketorolac 10 mg tablet 10 mg PO TID PRN (Reason: pain) Qty: 10 0RF ondansetron 4 mg tablet,disintegrating 4 mg PO Q6H PRN (Reason: nausea and vomiting) Qty: 10 0RF diphenhydramine HCl [Allergy (diphenhydramine)] 25 mg capsule 25 mg PO TID PRN (Reason: itching) Qty: 14 0RF sulfamethoxazole-trimethoprim [Bactrim DS] 800-160 mg tablet 1 tab PO BID 7 Days Qty: 14 0RF clindamycin HCl 300 mg capsule 300 mg PO Q6H 7 Days Qty: 28 0RF
== END 2023-09-21 14:55 | disposition home or self-care (01) ==
PROVIDERS: Emergency Provider Emergency Medicine
DX: G50.1 Atypical facial pain (principal); K08.89 Other specified disorders of teeth and supporting structures; Z79.899 Other long term (current) drug therapy
CPT/HCPCS: 99282; 99283